=== PATIENT | female | born 1945 ===

== ENCOUNTER 2017-04-18 13:45 | Inpatient (IN) | payer OTHER ==
[~2017-04-18] VITALS: Ht 152.4 cm; Wt 75.3 kg
[2017-04-25] MEDS ORDERED: CIPRO500 MG PO (15:34)
[2017-04-25] MEDS ORDERED: XARELTO10 MG PO (15:34)
[2017-04-25] MEDS ORDERED: PERCOCET 5-3251 EACH PO (15:34)
== END 2017-04-25 19:01 | DRG 470 ==
LOC: SURG 04-23 06:44 → O/R 04-23 06:44 → SURH 04-23 09:30 → SURG 04-23 12:38 → SURH 04-23 13:45 → SURG 04-25 19:01
PROVIDERS: Orthopaedic Surgery
PROC: 0MNP0ZZ Release Left Knee Bursa and Ligament, Open Approach (ICD-10-PCS; 2017-04-23)
PROC: 0SRD0J9 Replacement of Left Knee Joint with Synthetic Substitute, Cemented, Open Approach (ICD-10-PCS; principal; 2017-04-23 09:30)
DX: M17.12 Unilateral primary osteoarthritis, left knee (principal); I10 Essential (primary) hypertension; E11.9 Type 2 diabetes mellitus without complications; M81.0 Age-related osteoporosis without current pathological fracture; E66.01 Morbid (severe) obesity due to excess calories